=== PATIENT | female | born 1965 | race Caucasian/White ===

== ENCOUNTER 2017-02-11 15:14 | Emergency (ER) | payer OTHER ==
[2017-02-11] MEDS ORDERED: NS 1,000 ML IV ONE (15:18)
[2017-02-11] MEDS ORDERED: METOCLOPRAMIDE 10 MG/2 ML VIAL IVP ONE (15:24)
[2017-02-11] MEDS ORDERED: ONDANSETRON 4 MG/2 ML VIAL IVP ONE (15:24)
--- NOTE | 2017-02-11 15:27 | EDPHY ---
H & P Time Seen by Provider: 02/11/17 15:18 HPI/ROS: CHIEF COMPLAINT: Nausea, diarrhea HISTORY OF PRESENT ILLNESS: The patient is a 51-year-old female with a history of hypothyroidism who comes to the emergency department by EMS complaining of nausea and diarrhea. She has not vomited. She denies abdominal pain. She has a history of partial hysterectomy but no other abdominal surgeries. She has not had a fever. She arrived here from his early this morning by plain and her symptoms began a few hours later. She is concerned for altitude sickness. She denies shortness of breath. She does have a headache. She does not have history of headaches or migraines. She denies chest pain. REVIEW OF SYSTEMS: Constitutional: denies: chills, fever, recent illness, recent injury EENTM: denies: blurred vision, double vision, nose congestion Respiratory: denies: cough, shortness of breath Cardiac: denies: chest pain, irregular heart rate, lightheadedness, palpitations Gastrointestinal/Abdominal: See HPI Genitourinary: denies: dysuria, frequency, hematuria, pain Musculoskeletal: denies: joint pain, muscle pain Skin: denies: lesions, rash, jaundice, bruising Neurological: denies: headache, numbness, paresthesia, tingling, dizziness, weakness Hematologic/Lymphatic: denies: blood clots, easy bleeding, easy bruising Immunologic/allergic: denies: HIV/AIDS, transplant EXAM: GENERAL: Eyes closed, states that she is trying to keep from passing out. HEAD: Atraumatic, normocephalic. EYES: Pupils equal round and reactive to light, extraocular movements intact, sclera anicteric, conjunctiva are normal. ENT: TMs normal, nares patent, oropharynx clear without exudates. Moist mucous membranes. NECK: Normal range of motion, supple without lymphadenopathy or JVD. LUNGS: Breath sounds clear to auscultation bilaterally and equal. No wheezes rales or rhonchi. HEART: Regular rate and rhythm without murmurs, rubs or gallops. ABDOMEN: Soft, nontender, normoactive bowel sounds. No guarding, no rebound. No masses appreciated. BACK: No CVA tenderness, no spinal tenderness, step-offs or deformities EXTREMITIES: Normal range of motion, no pitting or edema. No clubbing or cyanosis. NEUROLOGICAL: Cranial nerves II through XII grossly intact. Normal speech, normal gait. 5/5 strength, normal movement in all extremities, normal sensation PSYCH: Normal mood, normal affect. SKIN: Warm, dry, normal turgor, no visible rashes or lesions. Source: Patient Exam Limitations: No limitations - Medical/Surgical History Hx Asthma: No Hx Chronic Respiratory Disease: No Hx Diabetes: No Hx Cardiac Disease: No Hx Renal Disease: No Hx Cirrhosis: No Hx Alcoholism: No - Family History Significant Family History: No pertinent family hx - Social History Smoking Status: Never smoked Alcohol Use: Sober Drug Use: None Constitutional: Initial Vital Signs Temperature (C) 36.9 C 02/11/17 15:20 Heart Rate 82 02/11/17 15:20 Respiratory Rate 18 02/11/17 15:20 Blood Pressure 109/62 02/11/17 15:20 O2 Sat (%) 94 02/11/17 15:20 O2 Delivery Mode Room Air Allergies/Adverse Reactions: Penicillins Allergy (Verified 02/11/17 19:58) Anaphylaxis Home Medications: Medication Instructions Recorded Fluticasone Nasal [Flonase Nasal 1 sprays NASAL DAILY PRN 02/11/17 [facility] (RX)] Herbals/Supplements -Info Only 1 ea PO DAILY 02/11/17 Levothyroxine [Synthroid 125 mcg 125 mcg PO DAILY06 02/11/17 (*)] Loratadine [Claritin] 10 mg PO DAILY 02/11/17 Multivitamins [Multivitamin (*)] 1 each PO DAILY 02/11/17 Zolpidem Tartrate [Ambien 10 mg] 10 mg PO HS PRN 02/11/17 Medical Decision Making ED Course/Re-evaluation: Head CT ordered in this adult patient for trauma for the following indication: Worst headache of life 5:45 p.m. the patient is feeling somewhat better. She is hyponatremic. She has received 1 L of fluids. We will hold there but restrict free water. I have spoke with Dr. Carmen Easton who will admit to the medical service. 7:00 p.m. the patient walked to the bathroom and states that she is feeling completely better. She is eager to go home. I recommended again that she stay in the hospital. She is set on going home. I encouraged her not to drink free water but to have saline solution. She is tolerating food here. She will be discharged. I discussed this with Dr. Easton. Differential Diagnosis: Partial list of the Differential diagnosis considered include but were not limited to; hyponatremia, migraine, gastroenteritis and although unlikely based on the history and physical exam, I also considered head injury, acute coronary disease. - Data Points Laboratory Results: Laboratory Results 02/11/17 15:15 02/11/17 15:15 Medications Given: Discontinued Medications Dexamethasone (Decadron Injection) 10 mg IVP EDNOW ONE Stop: 02/11/17 15:50 Last Admin: 02/11/17 15:57 Dose: 10 mg Diphenhydramine HCl (Benadryl Injection) 25 mg IVP EDNOW ONE Stop: 02/11/17 15:50 Last Admin: 02/11/17 15:57 Dose: 25 mg Sodium Chloride (Ns) 1,000 mls @ 0 mls/hr IV ONCE ONE PRN Reason: Wide Open Stop: 02/11/17 15:19 Last Admin: 02/11/17 15:20 Dose: 1,000 mls Ketorolac Tromethamine (Toradol) 30 mg IVP EDNOW ONE Stop: 02/11/17 15:50 Last Admin: 02/11/17 15:58 Dose: 30 mg Metoclopramide HCl (Reglan Injection) 10 mg IVP EDNOW ONE Stop: 02/11/17 15:25 Last Admin: 02/11/17 15:29 Dose: 10 mg Ondansetron HCl (Zofran) 4 mg IVP EDNOW ONE Stop: 02/11/17 15:25 Last Admin: 02/11/17 15:29 Dose: 4 mg Departure - Departure Disposition: Home, Routine, Self-Care Clinical Impression: Hyponatremia Condition: Fair Instructions: Hyponatremia (ED) Referrals: Patient,NotPresent [Unknown] - As per Instructions
[2017-02-11 15:35] LABS: % IMMATURE GRANULYOCYTES 0.7 % (0.0-1.1); ABSOLUTE IMMATURE GRANULOCYTES 0.07 10^3/uL (0.00-0.10); ADD DIFF? NO; ADD MORPH? NO; ADD SCAN? NO; ATYPICAL LYMPHOCYTE FLAG 10 (0-99); FRAGMENT RBC FLAG 0 (0-99); HEMATOCRIT 36.2 % (38.0-47.0); HEMOGLOBIN 12.4 g/dL (12.6-16.3); LEFT SHIFT FLG 0 (0-99); LIPEMIA HEMOLYSIS FLAG 90 (0-99); MEAN CELL HEMOGLOBIN 29.4 pg (27.9-34.1); MEAN CELL HEMOGLOBIN CONCENTR. 34.3 g/dL (32.4-36.7); MEAN CELL VOLUME 85.8 fL (81.5-99.8); MEAN PLATELET VOLUME 9.9 fL (8.7-11.7); PLATELET CLUMPS FLAG 0 (0-99); PLATELET COUNT 246 10^3/uL (150-400); RED BLOOD CELL COUNT 4.22 10^6/uL (4.18-5.33); RED CELL DISTRIBUTION WIDTH 11.2 % (11.5-15.2)
[2017-02-11 15:49] LABS: ALANINE AMINOTRANSFERASE 32 IU/L (9-52); ALBUMIN 4.1 g/dL (3.5-5.0); ALKALINE PHOSPHATASE 85 IU/L (38-126); ANION GAP 11 mEq/L (8-16); ASPARTATE AMINOTRANSFERASE 23 IU/L (14-46); BILIRUBIN-CONJUGATED 0.2 mg/dL (0.0-0.5); BILIRUBIN-UNCONJUGATED 0.8 mg/dL (0.0-1.1); CARBON DIOXIDE 23 mEq/l (22-31); CHLORIDE 89 mEq/L (97-110); CREATININE 0.7 mg/dL (0.6-1.0); GLOMERULAR FILTRATION RATE > 60; GLUCOSE 107 mg/dL (70-100); POTASSIUM 3.7 mEq/L (3.5-5.2); SODIUM 123 mEq/L (134-144); TOTAL PROTEIN 6.5 g/dL (6.3-8.2)
[2017-02-11] MEDS ORDERED: KETOROLAC 30 MG/1 ML SDV IVP ONE (15:49)
[2017-02-11] MEDS ORDERED: DEXAMETHASONE 10 MG/ML VIAL IVP ONE (15:49)
[2017-02-11 17:02] VITALS: RESP 18
[2017-02-11 17:40] VITALS: TEMP 98.4
[2017-02-11 19:26] VITALS: BP 114/76; PULSE 69; O2SAT 95
== END 2017-02-11 19:23 | disposition home or self-care (01) ==
LOC: UNDOADMOB 17:56
DX: E87.1 Hypo-osmolality and hyponatremia (principal)
CPT/HCPCS: 96374; J1100; J1200; J1885; J2405; J2765